=== PATIENT | male | born 1940 | race Caucasian/White ===

== ENCOUNTER 2020-08-01 08:07 | Outpatient (CLI) | payer OTHER, SELFPAY ==
--- NOTE | 2020-08-01 08:15 | XRR_ITS ---
PROCEDURE INFORMATION: Exam: XR Abdomen, 1 View Exam date and time: 08/01/2020 8:26 AM Age: 80 years old Clinical indication: Condition or disease; Kidney or ureter condition; Calculus (stone) in kidney; Additional info: Bilateral renal stones TECHNIQUE: Imaging protocol: XR of the abdomen. Views: Frontal supine view of the abdomen. 1 View. COMPARISON: CR XR KUB [id number] 07/29/2018 8:09 AM FINDINGS: Gastrointestinal tract: Normal. No bowel dilation. Bones/joints: There is a 6 mm calcification projecting to the left of the sacrum which corresponds to the bladder calcification seen on recent CT scan. It has not changed since previous abdominal radiographs. Degenerative changes are present in the spine. XR/XR KUB [id number] IMPRESSION: No significant change in the position of the 6 mm bladder calcification.
== END 2020-08-01 08:08 | disposition home or self-care (01) ==
PROVIDERS: PCP Nurse Practitioner Family; Visit Provider Urology
DX: N20.0 Calculus of kidney (principal); N32.89 Other specified disorders of bladder
CPT/HCPCS: 74018; 81003

== ENCOUNTER 2020-11-15 13:45 | Outpatient (CLI) | payer OTHER, SELFPAY ==
--- NOTE | 2020-11-15 13:49 | XR_ITS ---
WS: [id number] Exam: XR KUB [id number] Date/Time of Exam: 11/15/2020 1:52 PM Reason For Exam: UROLITHIASIS Comparison 08/01/2020. No calcifications noted over the region of the kidneys. No bowel obstruction or free air. Visualized organ margins are intact. Bilateral nonspecific pelvic calcifications are unchanged. XR/XR KUB [id number] IMPRESSION: 1. No calculi seen over the renal silhouettes. Bilateral pelvic calcifications unchanged. 2. No acute abdominal process.
== END 2020-11-15 13:46 | disposition home or self-care (01) ==
LOC: RAD 13:48
PROVIDERS: PCP Registered Nurse; Visit Provider Urology
DX: N20.9 Urinary calculus, unspecified (principal)
CPT/HCPCS: 74018; 81003; 87635

== ENCOUNTER 2020-11-20 11:28 | Day surgery (SDC) | payer OTHER, SELFPAY ==
[2020-11-17 12:39] VITALS: BMI 28.8
[2020-11-20] VITALS (8 sets, daily range): BP systolic 139–189; BP diastolic 63–120; PULSE 56–88; RESP 15–18; TEMP 36.3–36.4; O2SAT 92–96
[2020-11-20] MEDS: sodium chloride 0.9% 1,000 ML 30 ML IV (12:01)
--- NOTE | 2020-11-20 12:59 | ANES.PREANE2 ---
Pre-Anesthetic Assessment Pre-Anesthetic Assessment: Height/Weight: Height 1.83 m Weight 96.615 kg Temp Pulse Resp BP Pulse Ox 97.4 F L 61 18 159/84 95 11/20/20 11:43 11/20/20 11:43 11/20/20 11:43 11/20/20 12:00 11/20/20 11:43 Preop Diagnosis: Bladder stone Proposed Procedure: Operation Date: 11/20/20 13:45 Proposed Procedures p Cystoscopy 36428 N21.0(Not Applicable) - Gato Ahn MD s ESWL Extracorporeal Shockwave Lithotrispy 51012 N21.0(Not Applicable) - Gato Ahn MD Was Beta Yanick taken within 24 hours: N/A Was Clonidine taken within 24 hours: N/A Last intake: Intake Last Liquid Date 11/20/20 Last Liquid Time 06:00 Last Solid Date 11/19/20 Last Solid Time 20:00 Social: Social History: Tobacco and No alcohol Exam: Pre-Anes Outpt Exam: alert, oriented x 3 and regular rate & rhythm Airway: Submandibular: WNL Cervical ROM: WNL MP: 2 Dentition: Chipped Additional comments: poor dentitiion Pulmonary: Pulmonary: COPD CV/HEM: CV/HEM: HTN Anesthetic Plan: ASA status: 3 Anesthesia: General Risk of > 500 ml blood loss (7ml/kg in children): No Meds/Allergies Current Medications: Current Medications Generic Name Dose Route Start Last Admin Trade Name Freq PRN Reason Stop Dose Admin Sodium Chloride 1,000 mls @ 30 ml s/hr 11/20/20 11:45 11/20/20 12:01 Sodium Chloride 0.9% IV 11/21/20 11:44 30 mls/hr .Q24H SINDY Administration PFSH Anesthesia PFSH: Medical History BPH loc w urin obs/LUTS Hypertension Osteoarthritis Urolithiasis Surgical History History of extraction of renal calculus CYSTOURETHROSCOPY WITH URETERSCOPY WITH REMOVAL OF CALCULUS Hx of knee surgery Family History Father , AT AGE 36 Cancer COLON 2 BROTHER COLON CANCER Social History Smoking and tobacco status: never smoked Alcohol intake: never Marital status: Current occupational status: retired History of recent travel: No Data Anesthesia Cardiac Studies: No Data to Display
--- NOTE | 2020-11-20 14:31 | W.PM.OPSUD ---
Surgery/Procedure H&P Update DATE OF PROCEDURE: November 20, 2020 DATE H&P PERFORMED: 11/15/20 H&P UPDATE INFORMATION: I have reviewed H&P completed within last 30 days, I have examined patient prior to procedure and No changes to prior documentation CHANGES TO PREVIOUS DOCUMENTATION: Plan is to perform extracorporeal shockwave lithotripsy and if necessary cystolitholapaxy to complete. PREOP DIAGNOSIS: Bladder stone PLANNED PROCEDURE: Operation Date: 11/20/20 13:45 Proposed Procedures p Cystoscopy 20927 N21.0(Not Applicable) - Gato Ahn MD s ESWL Extracorporeal Shockwave Lithotrispy 95706 N21.0(Not Applicable) - Gato Ahn MD
[2020-11-20] MEDS: levofloxacin-dextrose 5 % 500 MG/100 ML PREMIX 100 MG IV (14:45)
--- NOTE | 2020-11-20 15:40 | P.OP_ITS ---
Operative Report Date of procedure: November 20, 2020 Pre-op Diagnosis: Bladder stone Post-op diagnosis: same Procedure Done: Extracorporeal shockwave lithotripsy to bladder stone Cystoscopy removal of bladder stone fragments Pathology: Stone fragments Surgeon: Anabelle Piece Work Checker: Ja Anesthesia: General Estimated blood loss: Minimal Urine output: Not measured Findings: Stone easily identified and focused upon. 1500 shocks administered with excellent change. All fragments removed Condition: stable Disposition: PACU Brief History: Mr. Chaudhry is a very pleasant 80-year-old white male with recurrent bladder stones. Recently discovered to have a new calcification of the bladder measuring about 2 cm in size. Cystoscopy confirmed x-ray findings and he is admitted now for extracorporeal shockwave lithotripsy. Procedure: After routine preoperative evaluation examination and obtaining of informed consent he was taken to the operating suite on 11/20/2020 where general anesthesia was administered without difficulty after appropriate timeout was performed, SCDs confirmed to be functioning, preoperative antibiotics administered, beta- star protocol confirmed. Positioned on the Dornier unit such of the bladder stone was located at the focal point utilizing shock head in anterior position. The stone was easily targeted. Shockwave therapy was begun at an intensity of 1 advanced an intensity of 4. Rate was started at 70 and after significant change was noted advanced to 90. The stone showed early and significant change. By 1500 shocks it was hard to identify any significant fragments. The shockwave therapy was completed at that point. Prepped and draped in the usual sterile fashion in dorsolithotomy position paying careful attention to avoiding pressure points. 21 Sinhala cystoscope with 30 degree lens was advanced into the bladder without difficulty. Cystoscopic examination confirmed that the stone had been well fragmented to very small pieces which were then flushed from the bladder with an Ellik evacuator. Final inspection revealed no additional fragments. Bladder was in good shape. Tolerated procedure well without complications and was awakened in the operating room and returned to recovery in stable condition.
[2020-11-20] MEDS: cetylpyridinium Lozenge 1 EACH MUCOUS MEM (16:10)
--- NOTE | 2020-11-20 16:17 | ANE.PACU2 ---
Inpatient post-anesthesia follow up: Airway intact: Yes Vital signs: Temperature 97.6 F Pulse Rate 88 Respiratory Rate 17 Blood Pressure 172/91 Pulse Oximetry 92 Oxygen Delivery Me thod Room Air Oxygen Flow Rate 8 Fraction of Inspir ed Oxygen Hydration adequate: Yes Nausea and vomiting: No Pain level: 2 Mental status: Baseline
[2020-11-26 15:33] LABS: Stone Source BLADDER STONES
== END 2020-11-20 16:40 | disposition home or self-care (01) ==
PROVIDERS: PCP Registered Nurse; Visit Provider Urology
PROC: 0TJB8ZZ Inspection of Bladder, Via Natural or Artificial Opening Endoscopic (ICD-10-PCS; CPT 52000; principal; 2020-11-20 13:35)
PROC: (CPT 50590; 2020-11-20 13:35)
DX: N21.0 Calculus in bladder (principal); J44.9 Chronic obstructive pulmonary disease, unspecified; I10 Essential (primary) hypertension; N40.1 Benign prostatic hyperplasia with lower urinary tract symptoms; N13.8 Other obstructive and reflux uropathy; M19.90 Unspecified osteoarthritis, unspecified site
CPT/HCPCS: 50590; 52310; 82365; 88305; 96365; J1956; J2405; J2704; J2710; J3010; J3490; J7030

== ENCOUNTER 2021-05-23 07:29 | Outpatient (CLI) | payer OTHER, SELFPAY ==
--- NOTE | 2021-05-23 07:30 | XR_ITS ---
WS: [id number] KUB, AP view, 05/23/2021 Clinical Data: UROLITHIASIS Comparison: KUB, 11/15/2020. Findings: No abnormal intraabdominal masses or calcifications are seen. There is no dilatated small bowel or ev idence of obstruction. There is scattered small bowel and colon gas. XR/XR KUB [id number] Impression: Negative KUB.
== END 2021-05-23 07:30 | disposition home or self-care (01) ==
LOC: RAD 07:31
PROVIDERS: PCP Registered Nurse; Visit Provider Urology
DX: N20.9 Urinary calculus, unspecified (principal)
CPT/HCPCS: 74018; 81003

== ENCOUNTER 2022-05-22 08:27 | Outpatient (CLI) | payer OTHER, SELFPAY ==
--- NOTE | 2022-05-22 08:37 | XR_ITS ---
WS: [id number] KUB, AP view, 05/22/2022 Clinical Data: Urolithiasis Comparison: KUB, 05/23/2021. Findings: No abnormal intraabdominal masses or calcifications are seen. There is no dilatated small bowel or ev idence of obstruction. There is minimal fecal material in the transverse colon. Vascular calcifications are present. XR/XR KUB [id number] Impression: Negative KUB.
== END 2022-05-22 08:28 | disposition home or self-care (01) ==
LOC: RAD 08:32
PROVIDERS: PCP Registered Nurse; Visit Provider Registered Nurse
DX: N20.9 Urinary calculus, unspecified (principal)
CPT/HCPCS: 74018; 81003